=== PATIENT | female | born 1965 | race Caucasian/White ===

== ENCOUNTER → 2020-12-16 21:31 | Outpatient (CLI) | payer BC, SELFPAY ==
[2020-12-16 22:06] LABS: ALB/GLOB Ratio 0.9 RATIO (0.9-2.4); AST(SGOT) 20 U/L (15-37); Alanine Aminotransfer ALT/SGPT 37 U/L (13-56); Albumin, Serum 3.8 g/dL (3.2-5.0); Alkaline Phosphatase 87 U/L (45-117); Anion Gap 6 (5-15); BUN 11 mg/dL (7-18); Calcium,Total 8.8 mg/dL (8.5-10.1); Chloride 109 mmol/L (98-107); Cholesterol 155 mg/dL (200); Creatinine, Serum 0.78 mg/dL (0.55-1.02); EST Glomerular Filtration Rate 81 mL/min (>60); Est Glom Filt Rate - Afr Amer 98 mL/min (>60); Follicle Stimulating Hormone 28.8 mIU/mL; Globulin 4.1 g/dL (2.2-4.2); Glucose 103 mg/dL (74-106); High Density Lipoprotein 46 mg/dL; Luteinizing Hormone 20.5 mIU/mL; Potassium 3.9 mmol/L (3.5-5.1); Protein, Total 7.9 g/dL (6.4-8.2); Sodium Level 142 mmol/L (136-145); Thyroid Stim Hormone (TSH) 0.72 uIU/mL (0.358-3.74); Triglycerides 158 mg/dL; Very Low Density Lipoprotein 32 mg/dL (5-40)
[2020-12-16 22:13] LABS: Absolute Lymphocyte Count 2.12 X10^3/uL (0.83-4.51); Absolute Neutrophil Count 5.4 X10^3/uL (2.0-7.7); Basophil# 0.09 X10^3/uL; Basophil% 1.1 % (0-1); Eosinophil# 0.15 X10^3/uL; Eosinophils% 1.8 % (0-5); Lymphocyte # 2.12 X10^3/ul (0.83-4.51); Lymphocyte % 25.3 % (19-41); Mean Corpuscular Hgb 25.9 pg (27.0-32.0); Mean Corpuscular Volume 83.8 fL (81-99); Mean Platelet Vol. 11.6 fl (6.2-12.0); Monocyte# 0.54 X10^3/uL; Monocyte% 6.4 % (0-10); NRBC Flagged by Analyzer 0 % (0-5); Neutrophil # 5.43 X10^3/uL (2.7-7.7); Neutrophil % 64.8 % (47-70); Platelet Count 251 K/mm3 (150-450); RBC Distribution Width CV 13.4 % (11.6-14.6); RBC Distribution Width SD 41.1 fl (35.1-43.9); Red Blood Count 5.01 M/mm3 (4.2-5.4); White Blood Count 8.4 K/mm3 (4.4-11.0)
[2020-12-19 09:20] LABS: PTHIN 62.6 pg/mL (18.4-80.1)
== END ==
PROVIDERS: Referring Provider Nurse Practitioner; Visit Provider Nurse Practitioner
DX: R63.5 Abnormal weight gain (principal); N95.1 Menopausal and female climacteric states; R60.0 Localized edema; E03.9 Hypothyroidism, unspecified
CPT/HCPCS: 80053; 80061; 83001; 83002; 83970; 84443; 85025